=== PATIENT | male | born 1970 | race African-American/Black ===

== ENCOUNTER 2025-01-20 06:51 | Emergency (ER) | payer MEDICAID ==
[~2025-01-20] VITALS: Ht 177.8 cm; Wt 113.4 kg
[2025-01-20 06:51] VITALS: PULSE 94; RESP 16; TEMP 98.4; O2SAT 98
== END 2025-01-20 08:00 | disposition home or self-care (01) ==
LOC: ER 06:55
DX: R11.2 Nausea with vomiting, unspecified (principal); F17.210 Nicotine dependence, cigarettes, uncomplicated
CPT/HCPCS: 99283